=== PATIENT | male | born 1955 | race American Indian/Alaskan Native ===

== ENCOUNTER 2021-12-09 08:50 | Observation (INO) | payer OTHER, MEDICARE ==
[~2021-12-09 08:50] MED LIST: LACTATED RINGERS 1,000 ML IV SCH
--- NOTE | 2021-12-09 10:18 | Anesthesia Consultation ---
Anesthesia Consult and Med Hx Date of service: 12/09/21 - Airway Anesthetic Teeth Evaluation: Poor (multiple missing teeth with evidence of decay, denies loose teeth) ROM Head & Neck: Adequate Mental/Hyoid Distance: Adequate Mallampati Class: Class II Intubation Access Assessment: Probably Good - Pre-Operative Health Status ASA Pre-Surgery Classification: ASA4 Proposed Anesthetic Plan: General - Pulmonary Hx Smoking: Yes Hx Asthma: Yes COPD: Yes Home Oxygen Therapy: Yes (4L continuous; start home O2 after COVID 1.5yr ago) Hx Sleep Apnea: Yes - Cardiovascular System Hx Hypertension: Yes (antihypertensives QOD) Hx Heart Attack/AMI: No - Central Nervous System CVA: No Hx Back Pain: Yes Hx Psychiatric Problems: Yes (PTSD) - Endocrine Hx Renal Disease: No Hx Liver Disease: No Hx Non-Insulin Dependent Diabetes: Yes (diet controlled) Hx Thyroid Disease: No - Other Systems Hx Substance Use: Yes (hx THC and cocaine use 4 yrs ago) - Additional Comments Anesthesia Medical History Comments: No hx anesthetic complications. Patient lives alone and has no responsible adult available to stay with him overnight. Given comobid conditions and plan GA, patient will be admitted for overnight obs.
[2021-12-09] MEDS ORDERED: HYDROcodone/ACETAMINOPHEN 5-325 MG TAB PO PRN (10:19)
[2021-12-09] MEDS ORDERED: ONDANSETRON 4 MG/2 ML INJ IV PRN ×2 (10:19→13:00)
--- NOTE | 2021-12-09 10:19 | Anesthesia Day of Surgery ---
Anesthesia Day of Surgery - Day of Surgery Patient Examined: Yes Patient H&P Reviewed: Yes Patient is NPO: Yes
[2021-12-09] MEDS ORDERED: MIDAZOLAM 2 MG/2 ML INJ IV NR (11:00)
[2021-12-09] MEDS ORDERED: ceFAZolin/STERILE WATER 2 GM/20 ML SYRINGE IV NR (11:10)
[2021-12-09] MEDS ORDERED: ONDANSETRON 4 MG/2 ML INJ ONE (11:25)
[2021-12-09] MEDS ORDERED: LIDOCAINE MPF (2%) 20 MG/1 ML VIAL 5 ML ONE (11:25)
[2021-12-09] MEDS ORDERED: propofoL 200 MG/20 ML VIAL IV ONE (11:26)
[2021-12-09] MEDS ORDERED: fentaNYL 100 MCG/2 ML INJ ONE (11:26)
[2021-12-09] MEDS ORDERED: ceFAZolin/Water 2 GM/20 ML 2 GM/20 ML SYRINGE IV ONE (11:31)
[2021-12-09] MEDS ORDERED: WATER FOR IRRIG STERILE 2000 ML IR ONE (12:00)
[2021-12-09] MEDS ORDERED: HYDROmorphone 1 MG/1 ML INJ ONE (12:13)
--- NOTE | 2021-12-09 12:42 | Short Stay Summary ---
Short Stay Documentation Date of service: 12/09/21 - History H&P: obtained from office - Allergies and Medications Current Medications: Allergies latex Adverse Reaction (Severe, Verified 12/02/21 14:57) Shortness of Breath BREAKS OUT,HIVES CT SCAN DYE Adverse Reaction (Severe, Uncoded 12/02/21 14:59) Hives ITCHING,KNOTS IN HEAD,EARS & ARMS Home Medications Medication Instructions Recorded Confirmed Last Taken Type Finasteride [Proscar] 5 mg PO QDAY 12/08/21 12/08/21 Unknown History Tamsulosin [Flomax] 2 tab PO QDAY 12/08/21 12/08/21 Unknown History Active Medications Cefazolin Sodium (Cefazolin/Sterile Water 2 Gm/20 Ml Syringe) 2 gm IV PREOP NR Stop: 12/09/21 23:59 Fentanyl (Fentanyl 100 Mcg/2 Ml Inj) 50 mcg IV Q5MIN PRN PRN Reason: Pain , Severe (7-10) Stop: 12/09/21 20:00 Lactated Ringer's (Lactated Ringers) 1,000 mls @ 42 mls/hr IV DIRECT PATRICIA Stop: 12/09/21 23:59 Last Admin: 12/09/21 09:50 Dose: 42 mls/hr Midazolam HCl (Midazolam 2 Mg/2 Ml Inj) 2 mg IV PREOP NR Stop: 12/09/21 23:59 Last Admin: 12/09/21 10:38 Dose: 2 mg Ondansetron HCl (Ondansetron 4 Mg/2 Ml Inj) 4 mg IV ONCE PRN PRN Reason: Nausea And Vomiting Stop: 12/09/21 13:00 - Brief post op/procedure progress note Date of procedure: 12/09/21 Pre-op diagnosis: hematuria, bph, elevated psa Procedure: cysto, cysogram, digital prostate bx Anesthesia: GETA Surgeon: MIKY HORAN Specimen disposition: to lab (prostate cores) Condition: stable - Hospital course Hospital course: bactrim & norco on chart - Disposition Condition at discharge: Stable Disposition: 01 HOME / SELF CARE / HOMELESS Short Stay Discharge Plan Follow up with: [facility] [Primary Care Provider] - 7 Days
[2021-12-09] MEDS: fentaNYL 100 MCG/2 ML INJ IV PRN ×2 (12:50→13:50)
[2021-12-09] MEDS ORDERED: NALOXONE 0.4 MG/1 ML INJ IV PRN (13:00)
[2021-12-09] MEDS ORDERED: SODIUM CHLORIDE 0.45% 1000 ML 1,000 ML IV SCH (13:00)
[2021-12-09] MEDS ORDERED: ACETAMINOPHEN 325 MG TAB PO PRN (13:00)
[2021-12-09] MEDS ORDERED: HYDROmorphone 0.5 MG/0.5 ML INJ ONE (13:26)
--- NOTE | 2021-12-09 13:32 | Consultation ---
History of Present Illness - Reason for Consult Consult date: 12/09/21 Medical Management Requesting physician: MIKY JAIN - History of Present Illness 66 YO Male with Obesity, Vascular Dementia, Cerebral Atherosclerosis, BPH, LDD, HTN, COPD, Chronic Respiratory Failure on Home Oxygen, 4L via [place], DM -diet controlled, Metabolic Syndrome, Obesity Hypoventilation Syndrome, PTSD. Consult placed by Dr. Jain for medical management. Patient seen and evaluated in his room. Patient resting comfortably and is at baseline level of cognition and function. Patient denies fever, chills, chest pain, palpitation, productive cough, skin rash, recent contact, known exposure to COVID-19. No reported nursing events. Past History Past Medical History: COPD, hypertension, other (See HPI) Past Surgical History: Other (Prostate biopsy) Social history: single. denies: smoking, alcohol abuse Family history: hypertension Medications and Allergies Allergies Allergy/AdvReac Type Severity Reaction Status Date / Time latex AdvReac Severe Shortness Verified 12/02/21 14:[address] SCAN DYE AdvReac Severe Hives Uncoded 12/02/21 14:59 Home Medications Medication Instructions Recorded Confirmed Last Taken Type Finasteride [Proscar] 5 mg PO QDAY 12/08/21 12/08/21 Unknown History Tamsulosin [Flomax] 2 tab PO QDAY 12/08/21 12/08/21 Unknown History Active Meds: Active Medications Acetaminophen (Acetaminophen 325 Mg Tab) 650 mg PO Q4H PRN PRN Reason: Pain MILD(1-3)/Fever >100.5/[place] Cefazolin Sodium (Cefazolin/Sterile Water 2 Gm/20 Ml Syringe) 2 gm IV PREOP NR Stop: 12/09/21 23:59 Fentanyl (Fentanyl 100 Mcg/2 Ml Inj) 50 mcg IV Q5MIN PRN PRN Reason: Pain , Severe (7-10) Stop: 12/09/21 20:00 Finasteride (Finasteride 5 Mg Tab) 5 mg PO QDAY PATRICIA Sodium Chloride (Nacl 0.45% 1000 Ml) 1,000 mls @ 100 mls/hr IV DIRECT PATRICIA Midazolam HCl (Midazolam 2 Mg/2 Ml Inj) 2 mg IV PREOP NR Stop: 12/09/21 23:59 Last Admin: 12/09/21 10:38 Dose: 2 mg Morphine Sulfate (Morphine 4 Mg/1 Ml Inj) 4 mg IV Q4H PRN PRN Reason: Pain , Severe (7-10) Naloxone HCl (Naloxone 0.4 Mg/1 Ml Inj) 0.1 mg IV Q2MIN PRN PRN Reason: Res Rate </= 8 or 02 SAT < 92% Ondansetron HCl (Ondansetron 4 Mg/2 Ml Inj) 4 mg IV Q8H PRN PRN Reason: Nausea And Vomiting Oxycodone/Acetaminophen (Oxycodone /Acetaminophen 5-325mg Tab) 1 tab PO Q6H PRN PRN Reason: Pain, Moderate (4-6) Sodium Chloride (Sodium Chloride 0.9% 10 Ml Flush Syringe) 10 ml IV BID PATRICIA Sodium Chloride (Sodium Chloride 0.9% 10 Ml Flush Syringe) 10 ml IV PRN PRN PRN Reason: LINE FLUSH Tamsulosin HCl (Tamsulosin 0.4 Mg Cap) mg PO QDAY PATRICIA Zolpidem Tartrate (Zolpidem 5 Mg Tab) 5 mg PO QHS PRN PRN Reason: Insomnia Review of Systems Constitutional: no weight loss, no weight gain, no fever Ears, nose, mouth and throat: no ear pain, no ear discharge, no nasal congestion Cardiovascular: no chest pain, no palpitations, no rapid/irregular heart beat, no syncope Respiratory: no cough, no excessive sputum, no shortness of breath, no dyspnea on exertion Gastrointestinal: no vomiting, no change in bowel habits Genitourinary Male: no hematuria, no flank pain, no urinary frequency, no urinary hesitancy Rectal: no pain Musculoskeletal: no neck pain, no shooting leg pain, no leg numbness/tingling Integumentary: no rash, no redness, no wounds, no jaundice Neurological: no head injury, no paralysis, no parathesias, no seizures, no tremors Psychiatric: no anxiety, no sleep disturbances, no disorientation Endocrine: no cold intolerance, no polydipsia, no nocturia, no excessive sweating Hematologic/Lymphatic: no easy bruising Allergic/Immunologic: no urticaria, no wheezing Exam - Constitutional Vitals: Temp Pulse Resp BP Pulse Ox 97.9 F 94 H 12 91/56 97 12/09/21 12:37 12/09/21 12:37 12/09/21 12:37 12/09/21 12:37 12/09/21 12:37 General appearance: Present: obese - EENT Eyes: Present: PERRL ENT: hearing intact, clear oral mucosa - Neck Neck: Present: supple, normal ROM - Respiratory Respiratory effort: normal Respiratory: bilateral: CTA - Cardiovascular Heart Sounds: Present: S1 & S2. Absent: rub, click - Extremities Extremities: pulses symmetrical, No edema Peripheral Pulses: within normal limits - Abdominal General gastrointestinal: Present: soft, non-tender, non-distended, normal bowel sounds Male genitourinary: Present: normal - Integumentary Integumentary: Present: clear, warm, dry - Musculoskeletal Musculoskeletal: gait normal, strength equal bilaterally - Psychiatric Psychiatric: appropriate mood/affect, intact judgment & insight - Neurologic Neurologic: CNII-XII intact, moves all extremities Assessment and Plan - Patient Problems (1) Hypertension Current Visit: Yes Status: Acute Qualifiers: Hypertension type: primary hypertension Qualified Code(s): I10 - Essential (primary) hypertension Plan to address problem: Monitor blood pressure every shift, continue medical management. (2) Diabetes Current Visit: Yes Status: Acute Plan to address problem: Consistent carbohydrate diet, Accu-Chek, insulin protocol, hypoglycemia protocol. (3) COPD (chronic obstructive pulmonary disease) Current Visit: Yes Status: Acute Qualifiers: COPD type: COPD with acute lower respiratory infection Qualified Code(s): J44.0 - Chronic obstructive pulmonary disease with (acute) lower respiratory infection Plan to address problem: Supplemental oxygen, Therapy. No acute exacerbation at this time. (4) Metabolic syndrome Current Visit: Yes Status: Acute Plan to address problem: Balanced diet, low-cholesterol diet, increase physical activity at discharge. (5) BPH (benign prostatic hyperplasia) Current Visit: Yes Status: Acute Plan to address problem: Supportive care, continue medical management. Patient s/p prostate biopsy. (6) Advance care planning Current Visit: Yes Status: Acute Plan to address problem: Disease education done, care plan discussed, diagnoses discussed, prognosis discussed, patient is full code. Patient acknowledges understanding and agreement with care plan, +30 minutes. (7) Preventative health care Current Visit: Yes Status: Acute Plan to address problem: Patient counseled regarding balanced diet, increase physical activity at discharge, meal planning, patient instructed to follow-up with primary care physician as outpatient for all age and risk factor appropriate screening tests.
--- NOTE | 2021-12-09 13:41 | Fluoroscopy Report ---
INTRAOPERATIVE FLUOROSCOPY: PELVIS INDICATION / CLINICAL INFORMATION: hematuria. TECHNIQUE: Intraoperative spot images were obtained during the procedure. FINDINGS: Intraprocedural images from cystography. Please refer to operative report for further information. Fluoroscopy Time: 0.3 minutes. Fluoroscopy Images: 5. Signer Name: Jose Roberto Elizabeth MD Signed: 12/09/2021 1:37 PM Workstation Name: [id number]
[2021-12-09] MEDS ORDERED: HYDROmorphone 1 MG/1 ML INJ IV PRN ×2 (14:07→14:19)
[2021-12-09] MEDS ORDERED: HYDROmorphone 0.5 MG/0.5 ML INJ IV PRN ×2 (14:22→15:00)
--- NOTE | 2021-12-09 15:44 | Post Anesthesia Evaluation ---
- Post Anesthesia Evaluation Patient Participated: Yes Airway Patent: Yes Stable Respiratory Function: Yes Nausea/Vomiting: No Temp > 96.8F: Yes Pain Manageable: Yes Adequeate Hydration: Yes Anesthesia Complications: No Other Comments: OK for transfer to floor pending bed availability.
[2021-12-09] MEDS: MORPHINE 4 MG/1 ML INJ IV PRN (17:47)
[2021-12-09] MEDS: oxyCODONE /ACETAMINOPHEN 5-325MG TAB PO PRN (21:34)
[2021-12-09] MEDS ORDERED: ZOLPIDEM 5 MG TAB PO PRN (22:00)
[2021-12-10] MEDS: MORPHINE 4 MG/1 ML INJ IV PRN ×2 (01:24→10:42)
[2021-12-10] MEDS: oxyCODONE /ACETAMINOPHEN 5-325MG TAB PO PRN ×2 (04:46→13:24)
[2021-12-10 06:27] VITALS: BP 149/69
--- NOTE | 2021-12-10 08:52 | Post Anesthesia Evaluation ---
- Post Anesthesia Evaluation Patient Participated: Yes Airway Patent: Yes Stable Respiratory Function: Yes Temp > 96.8F: Yes Pain Manageable: Yes Adequeate Hydration: Yes Anesthesia Complications: No Block Receding Appropriately: Not Applicable Patient on Ventilator: No
--- NOTE | 2021-12-10 09:02 | Event Note ---
Date: 12/10/21 pt resting well nurse reports no issues overnight transportation supervisor picking crew scheduled for 2pm today ok to dc home after seen by Dr. Escobar's group
--- NOTE | 2021-12-10 09:30 | Progress Note ---
Assessment and Plan Assessment and plan: 66 YO Male with Obesity, Vascular Dementia, Cerebral Atherosclerosis, BPH, LDD, HTN, COPD, Chronic Respiratory Failure on Home Oxygen, 4L via [place], DM -diet controlled, Metabolic Syndrome, Obesity Hypoventilation Syndrome, PTSD. Consult placed by Dr. Jain for medical management. Patient seen and evaluated in his room. Patient resting comfortably and is at baseline level of cognition and function. Hypertension Diabetes mellitus type 2 COPD, compensated BPH 12/10/2021. No new issues overnight. Patient stable for discharge History Interval history: No new issues overnight Hospitalist Physical - Constitutional Vitals: Temp Pulse Resp BP Pulse Ox 97 F L 76 22 149/69 97 12/09/21 17:02 12/10/21 05:38 12/10/21 05:38 12/10/21 05:38 12/10/21 09:02 General appearance: Present: obese - EENT Eyes: Present: PERRL, EOM intact ENT: hearing intact, clear oral mucosa, dentition normal - Neck Neck: Present: supple, normal ROM - Respiratory Respiratory effort: normal Respiratory: bilateral: CTA - Cardiovascular Rhythm: regular Heart Sounds: Present: S1 & S2. Absent: gallop, rub - Extremities Extremities: no ischemia, No edema, Full ROM - Abdominal General gastrointestinal: soft, non-tender, non-distended, normal bowel sounds - Integumentary Integumentary: Present: clear, warm, dry - Neurologic Neurologic: CNII-XII intact, moves all extremities Results - Labs Labs: Laboratory Last Values POC Glucose 122 mg/dL (70-105) H 12/10/21 05:30 Schwab/IV: Voiding Method Toilet Active Medications - Current Medications Current Medications: Generic Name Dose Route Start Last Admin Trade Name Freq PRN Reason Stop Dose Admin Acetaminophen 650 mg 12/09/21 13:00 Acetaminophen 325 Mg Tab PO Q4H PRN Pain MILD(1-3)/Fever >100.5/[place] Finasteride 5 mg 12/10/21 10:00 Finasteride 5 Mg Tab PO QDAY PATRICIA Sodium Chloride 1,000 mls @ 100 mls/hr 12/09/21 13:00 12/09/21 17:47 Nacl 0.45% 1000 Ml IV 100 mls/hr DIRECT PATRICIA Administration Morphine Sulfate 4 mg 12/09/21 13:00 12/10/21 01:24 Morphine 4 Mg/1 Ml Inj IV 4 mg Q4H PRN Administration Pain , Severe (7-10) Naloxone HCl 0.1 mg 12/09/21 13:00 Naloxone 0.4 Mg/1 Ml Inj IV Q2MIN PRN Res Rate </= 8 or 02 SAT < 92% Ondansetron HCl 4 mg 12/09/21 13:00 Ondansetron 4 Mg/2 Ml Inj IV Q8H PRN Nausea And Vomiting Oxycodone/Acetaminophen 1 tab 12/09/21 13:00 12/10/21 04:46 Oxycodone /Acetaminophen 5-325mg Tab PO 1 tab Q6H PRN Administration Pain, Moderate (4-6) Sodium Chloride 10 ml 12/09/21 22:00 12/09/21 22:47 Sodium Chloride 0.9% 10 Ml Flush Syringe IV 10 ml BID PATRICIA Administration Sodium Chloride 10 ml 12/09/21 13:00 Sodium Chloride 0.9% 10 Ml Flush Syringe IV PRN PRN LINE FLUSH Tamsulosin HCl 0.4 mg 12/10/21 10:00 Tamsulosin 0.4 Mg Cap PO QDAY PATRICIA Zolpidem Tartrate 5 mg 12/09/21 22:00 12/09/21 23:46 Zolpidem 5 Mg Tab PO 5 mg QHS PRN Administration Insomnia
[2021-12-10] MEDS ORDERED: FINASTERIDE 5 MG TAB PO SCH (10:00)
[2021-12-10] MEDS ORDERED: TAMSULOSIN 0.4 MG CAP PO SCH ×2 (10:00)
--- NOTE | 2021-12-11 19:46 | Operative Report ---
DATE OF SURGERY: 12/09/2021 DATE OF SURGERY: 12/09/2021 PREOPERATIVE DIAGNOSES: Benign prostatic hypertrophy, elevated PSA, hematuria. POSTOPERATIVE DIAGNOSES: Benign prostatic hypertrophy, elevated PSA, hematuria. PROCEDURES: Flexible cystoscopy, cystogram, digital prostate biopsy. SURGEON: Az Jain MD ANESTHESIA: General. ESTIMATED BLOOD LOSS: Minimal. FLUIDS: Crystalloid. COMPLICATIONS: No complications. INDICATIONS: This patient is a 66-year-old gentleman seen in the office for elevated PSA of 5.5 and repeat of 5.4. He has also had worsening of his urinary symptoms. He is on Flomax [address] of the abdomen and pelvis, BPH, degenerative changes in his spine. He presents now for endoscopy under anesthesia at his request. Risks, benefits, and complications were explained. DESCRIPTION OF PROCEDURE: The patient was taken to the operative suite, placed in a supine position. After adequate general anesthesia, placed in a dorsal lithotomy position, prepped and draped in a sterile fashion. A radiologic technician film was consistent with lumbar spine hardware, previous spine surgery. Attempts at rigid ureteroscopy, the patient had significant high riding bladder neck and enlarged prostate. After some torque of the scope, I elected to do a flexible cystoscopy. No tumors or stones were noted, just BPH. Cystogram was performed, no extravasation using approximately 200 mL of dilute contrast. Next, using Bard biopsy gun, a digital-guided prostate biopsy was obtained, 3 cores on the right and 3 cores on the left. No suspicious lesions, just BPH. The patient tolerated the procedure well and was extubated and taken to recovery room. Due to his social status, he does not have anyone at home and poor transportation. He will be observed overnight. TID: [id number] RECEIPT: [id number] SHERRI/KENNEY
== END 2021-12-10 16:19 | disposition home or self-care (01) ==
LOC: OR 08:50 → 3A 12:42
PROVIDERS: ADMIT Urology; ATTEND Urology
DX: N40.1 Benign prostatic hyperplasia with lower urinary tract symptoms (principal); R31.29 Other microscopic hematuria; I10 Essential (primary) hypertension; J44.9 Chronic obstructive pulmonary disease, unspecified; E11.9 Type 2 diabetes mellitus without complications; R33.8 Other retention of urine; K21.9 Gastro-esophageal reflux disease without esophagitis; N41.9 Inflammatory disease of prostate, unspecified; E66.9 Obesity, unspecified; E88.81 Metabolic syndrome and other insulin resistance; F01.50 Vascular dementia, unspecified severity, without behavioral disturbance, psychotic disturbance, mood disturbance, and anxiety; M81.0 Age-related osteoporosis without current pathological fracture; F32.9 Major depressive disorder, single episode, unspecified; Z79.899 Other long term (current) drug therapy; Z98.890 Other specified postprocedural states; Z68.30 Body mass index [BMI] 30.0-30.9, adult
CPT/HCPCS: 52005; 74430; 82962; 88305; 94760; 96374; 96376; C1758; G0378; J0690; J1170; J2250; J2270; J2405; J2704; J3010; J7030; J7120; Q9967; J3490